=== PATIENT | male | born 1985 | race Caucasian/White ===

== ENCOUNTER 2023-04-23 13:34 | Emergency (ER) | payer OTHER, BC, SELFPAY ==
[2023-04-23] VITALS (27 sets, daily range): BP systolic 127–170; BP diastolic 77–117; PULSE 89–102; RESP 18; TEMP 36.8; O2SAT 96–100; BMI 28.9
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
[2023-04-23] MEDS: HYDROmorphone 0.5 mg/0.5 ml inj IVP ×2 (14:16→16:03)
[2023-04-23] MEDS: ONDANSETRON 2 MG/ML inj 4 MG IVP (14:16)
[2023-04-23 14:57] LABS: Basophils Absolute Auto 0.02 K/uL (0.00-0.30); Basophils Percent Auto 0.3 % (0.0-3.0); Eosinophils Absolute Auto 0.16 K/uL (0.00-0.50); Eosinophils Percent Auto 2.5 % (0.0-7.0); Hematocrit 47.9 % (37.0-53.0); Hemoglobin* 16.4 gm/dL (13.5-17.5); Immature Granulocytes Abs Auto 0.02 K/uL (0.00-0.30); Immature Granulocytes Pct Auto 0.3 %; Lymphocytes Absolute Auto 1.91 K/uL (0.90-2.90); Lymphocytes Percent Auto 30.1 % (20-44); Mean Corpuscular HGB Conc 34 gm/dL (32-36); Mean Corpuscular Hemoglobin 32 pg (26-34); Mean Corpuscular Volume 95 fL (80-100); Neutrophils Absolute Auto 3.67 K/uL (1.7-7.0); Neutrophils Percent Auto 57.8 % (42.0-72.0); Platelet Count* 241 K/uL (140-440); Red Blood Count 5.06 m/uL (4.30-5.90); White Blood Count* 6.35 K/uL (4.50-11.00)
[2023-04-23 15:03] LABS: Chloride* 102 mmol/L (96-114); Potassium* 3.4 mmol/L (3.6-5.1); Sodium* 131 mmol/L (135-149)
[2023-04-23 15:06] LABS: Anion Gap 2 mEq/L (7-15); Carbon Dioxide* 27 mmol/L (20-32); Creatinine* 0.9 mg/dL (0.5-1.5); Est. Creatinine Clearance* 128.12; Estimated Glomerular Filt Rate 111 ml/min
[2023-04-23 15:07] LABS: Blood Urea Nitrogen* 10 mg/dL (5-24); Calcium* 9.4 mg/dL (8.4-10.6); Glucose* 121 mg/dL (60-115)
[2023-04-23 15:19] LABS: Slide Review Reflex No
== END 2023-04-23 17:39 | disposition home or self-care (01) ==
PROVIDERS: Emergency Provider Emergency Medicine; PCP Family Medicine
DX: S22.31XA Fracture of one rib, right side, initial encounter for closed fracture (principal); S09.90XA Unspecified injury of head, initial encounter; V85.0XXA Driver of special construction vehicle injured in traffic accident, initial encounter; Y92.415 Exit ramp or entrance ramp of street or highway as the place of occurrence of the external cause
CPT/HCPCS: 36415; 70450; 71260; 72125; 74177; 76604; 76705; 80048; 85025; 93308; 96374; 96375; 99284; 99285; 99291; J1170; J2405; Q9967